=== PATIENT | female | born 1960 | race Caucasian/White ===

== ENCOUNTER 2025-07-01 08:47 | Outpatient (CLI) | payer MEDICARE, SELFPAY | END 2025-07-01 08:48 | disposition home or self-care (01) | LOC: OP CLINIC 08:48 | PROVIDERS: PCP Family Medicine; Visit Provider Surgery | DX: Z85.048 Personal history of other malignant neoplasm of rectum, rectosigmoid junction, and anus (principal); K62.89 Other specified diseases of anus and rectum; K64.4 Residual hemorrhoidal skin tags | CPT/HCPCS: 45330 ==

== ENCOUNTER 2025-07-07 13:24 | Outpatient (CLI) | payer MEDICARE, SELFPAY ==
[2025-07-07 13:58] LABS: Creatinine* 0.6 mg/dL (0.5-1.5); Estimated Glomerular Filt Rate 100 ml/min
--- NOTE | 2025-07-07 14:00 | CRLHL7_ITS ---
For Patients: As a result of the Century Cures Act, medical imaging exams and procedure reports are released immediately into your electronic medical record. You may view this report before your referring provider. If you have questions, please contact your health care provider. 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 COMPARISON: None. FINDINGS: CHEST: Cardiovascular structures: Heart size is normal. Thoracic aorta and main pulmonary artery are normal in caliber. Mediastinum and jamar: No mass or adenopathy. 1.7 cm left thyroid nodule. Subcentimeter nodules in the right thyroid lobe. Lungs and pleura: 5 mm oval nodule along the right minor fissure. Suspect intrapulmonary lymph node. Otherwise clear. Chest wall and axilla: No mass or adenopathy. Bones: No suspicious bone lesions. Unremarkable for age. ABDOMEN AND PELVIS: Liver: Unremarkable. Gallbladder and bile ducts: Unremarkable. Pancreas: Unremarkable. Spleen: Unremarkable. Adrenal glands: Unremarkable. Kidneys: Unremarkable. GI tract: Unremarkable. Vascular structures: Filling defect in the left common iliac vein consistent with acute thrombus. This is non occlusive. Thrombus extends into the internal iliac vein system. Lymph nodes: Unremarkable. Miscellaneous: Unremarkable. No free air or significant free fluid. Pelvic Organs: Unremarkable. Bones: No suspicious bone lesions. Chronic L1 and L2 compression fractures. Lumbar spondylosis. IMPRESSION: 1. Acute nonocclusive thrombus in the left common iliac vein. This was discussed with Dr. Hendricks at 10:45 on 07/08/2025. 2. No specific evidence for metastatic disease. 3. Subcentimeter lung nodule along the right minor fissure, likely intrapulmonary lymph node. Recommend attention on follow-up exam. 4. 1.7 cm left thyroid nodule. Recommend thyroid ultrasound. Please note that all CT scans at this facility use dose modulation, iterative reconstruction, and/or weight-based dosing when appropriate to reduce radiation dose to as low as reasonably achievable. Dictated by Benito Stuart MD @ 07/08/2025 10:46:45 AM (Electronically Signed)
== END 2025-07-07 13:25 | disposition home or self-care (01) ==
LOC: CT 13:25
PROVIDERS: PCP Family Medicine; Visit Provider Internal Medicine Hematology & Oncology
DX: C21.0 Malignant neoplasm of anus, unspecified (principal); I82.449 Acute embolism and thrombosis of unspecified tibial vein; E04.1 Nontoxic single thyroid nodule; M47.816 Spondylosis without myelopathy or radiculopathy, lumbar region; M48.57XD Collapsed vertebra, not elsewhere classified, lumbosacral region, subsequent encounter for fracture with routine healing; R91.8 Other nonspecific abnormal finding of lung field
CPT/HCPCS: 36415; 71260; 74177; 82565; Q9967

== ENCOUNTER 2025-07-24 10:29 | Outpatient (CLI) | payer MEDICARE, SELFPAY ==
--- NOTE | 2025-07-24 10:45 | CRLHL7_ITS ---
For Patients: As a result of the Century Cures Act, medical imaging exams and procedure reports are released immediately into your electronic medical record. You may view this report before your referring provider. If you have questions, please contact your health care provider. INDICATION: Left thyroid lobe nodule COMPARISON: CT 07/07/2025 TECHNIQUE: Strickland scale and color Doppler images were acquired of the thyroid gland. FINDINGS: Thyroid echotexture is heterogeneous. Mostly solid nodule left thyroid lobe measures 3.5 x 1.6 x 2.1 cm, TR 4. Solid nodule right thyroid lobe measures 8 x 5 x 7 millimeters, TR 4. Additional solid nodule right thyroid lobe measures 14 x 10 x 10 millimeters. TR 4. The right lobe measures 4.0 x 1.2 x 1.1 cm and the left lobe measures 4.4 x 2.0 x 2.0 cm in size. The color Doppler images demonstrate increased vascularity. There is no evidence of cervical lymphadenopathy or parathyroid mass. IMPRESSION: 3.5 cm TR 4 nodule left thyroid lobe. FNA recommended. Dictated by Fox Young MD @ 07/24/2025 11:24:31 AM (Electronically Signed)
== END 2025-07-24 10:30 | disposition home or self-care (01) ==
LOC: US 10:29
PROVIDERS: PCP Family Medicine; Visit Provider Internal Medicine Hematology & Oncology
DX: E04.1 Nontoxic single thyroid nodule (principal)
CPT/HCPCS: 76536